=== PATIENT | female | born 1975 | race Caucasian/White ===

== ENCOUNTER 2016-12-08 13:26 | Emergency (ER) ==
[2016-12-08 13:31] VITALS: BP 117/84; TEMP 101.5; BMI 35.9
[2016-12-08] MEDS ORDERED: DECADRON 4 MG/ML SDV IM STA (13:50)
[2016-12-08] MEDS ORDERED: TORADOL IM STA (13:50)
--- NOTE | 2016-12-08 13:58 | ED.PDOC ---
General ED Provider: Dr. REID JAMES Chief Complaint: Respiratory Complaint Stated Complaint: Been coughing, congested, getting yellow sputum hurting in chest to breath, Time Seen by Physician: 13:56 Mode of Arrival: Walk-In Information Source: Patient Nursing and Triage Documentation Reviewed and Agree: Yes Respiratory Complaint Exam - Respiratory Complaint/Exam Symptoms Are: Still present Timing: Constant Initial Severity: Mild Current Severity: Mild Location: Nose, Throat Character: Reports: Productive cough Aggravating: Reports: Allergens, URI Alleviating: Reports: None Associated Signs and Symptoms: Reports: Pleuritic chest pain, URI, Nasal congestion. Denies: Rapid breathing, Dyspnea, Fever, Chills, Chest pain, Wheezing, Hemoptysis, Dizziness, Calf pain, Calf swelling, Edema, Hoarseness, Sinus discomfort, Vomiting, Sore throat, Weight loss, Decreased oral intake, Increased thirst, Increased appetite, Increased urination Related History: Reports: Similar episode History of Healthcare-Acquired Pneumonia: No Related Surgical History: Reports: None Pulmonary Embolism Risk Factors: None Cardiac Risk Factors: Reports: None Pseudomonas Risk Factors: Reports: None Tuberculosis Risk Factors: Reports: None Status Asthmaticus Risk Factors: Reports: None Recent Stress Test: No Recent Echo/LV Function: No Current Antibiotic Use: No Current Asthma Medication Use: No Respiratory Distress: None Inadequate Respiratory Effort: No Dysphagia Present: No JVD Present: No Retractions: Not Present Diminished Breath Sounds: No Prolonged Respiration: Inspiratory phase Sinus Tenderness: None Differential Diagnoses: Pneumonia, Bronchitis Review of Systems - Review Of Systems Constitutional: Reports: No symptoms Eyes: Reports: No symptoms Ears, Nose, Mouth, Throat: Reports: No symptoms Respiratory: Reports: Cough Cardiac: Reports: Chest pain GI: Reports: No symptoms : Reports: No symptoms Musculoskeletal: Reports: No symptoms Skin: Reports: No symptoms Neurological: Reports: No symptoms Endocrine: Reports: No symptoms Hematologic/Lymphatic: Reports: No symptoms All Other Systems: Reviewed and Negative Past Medical History - Past Medical History Previously Healthy: Yes Endocrine: Reports: None Cardiovascular: Reports: None Respiratory: Reports: COPD (on 2lit) Hematological: Reports: None Gastrointestinal: Reports: None Genitourinary: Reports: None Neuro/Psych: Reports: None Musculoskeletal: Reports: None Cancer: Reports: None Last Menstrual Period: N/A - Surgical History General Surgical History: Reports: None - Family History Family History: Reports: None - Social History Smoking Status: Current every day smoker Smoking Cessation Counseling Time: > 3 min - 10 min Hx Substance Use: No Alcohol Screening: None Physical Exam - Physical Exam Appearance: Well-appearing, No pain distress, Well-nourished Eyes: LUCERO, EOMI, Conjunctiva clear ENT: Ears normal, Nose normal, Oropharynx normal Respiratory: Airway patent, Breath sounds clear, Breath sounds equal, Respirations nonlabored Cardiovascular: RRR, Pulses normal, No rub, No murmur GI/: Soft, Nontender, No masses, Bowel sounds normal, No Organomegaly Musculoskeletal: Normal strength, ROM intact, No edema, No calf tenderness Skin: Warm, Dry, Normal color Neurological: Sensation intact, Motor intact, Reflexes intact, Cranial nerves intact, Alert, Oriented Psychiatric: Affect appropriate, Mood appropriate Interpretation - Radiology Interpretation Radiology Interpretation By: ED Physician Radiology Results: Negative Exam Interpreted: CXR Critical Care Note - Critical Care Note Total Time (mins): 0 Course - Course Hematology/Chemistry: 12/08/16 14:00 12/08/16 14:00 Orders, Labs, Meds: Lab Review 12/08/16 14:00 WBC 21.93 H RBC 5.18 Hgb 15.8 Hct 45.5 MCV 87.8 MCH 30.5 MCHC 34.7 RDW Coeff of [place] 13.1 Plt Count 296 Immature Gran % (Auto) 0.8 Neut % (Auto) 79.4 Lymph % (Auto) 10.8 Morrison % (Auto) 8.1 Eos % (Auto) 0.5 Baso % (Auto) 0.4 Immature Gran # (Auto) 0.2 Neut # 17.4 H Lymph # 2.4 Morrison # 1.8 Eos # 0.1 Baso # 0.1 Sodium 134 L Potassium 3.4 L Chloride 100 Carbon Dioxide 23 Anion Gap 14.4 BUN 7 Creatinine 0.69 Estimated GFR (MDRD) 93.00 BUN/Creatinine Ratio 10.14 Glucose 94 Lactic Acid 7.3 Calcium 9.0 Total Bilirubin 0.93 AST 15 ALT 13 Alkaline Phosphatase 61 Total Protein 8.0 Albumin 3.4 Globulin 4.6 Albumin/Globulin Ratio 0.74 Procalcitonin 0.06 Influenza A (Rapid) Negative Influenza B (Rapid) Negative Orders Category Date Time Status CBC W/ AUTO DIFF Stat LAB 12/08/16 14:00 Completed COMPREHENSIVE METABOLIC PANEL Stat LAB 12/08/16 14:00 Completed LACTIC ACID Stat LAB 12/08/16 14:00 Completed PROCALCITONIN Stat LAB 12/08/16 14:00 Completed RAPID FLU A/B Stat LAB 12/08/16 14:00 Completed Acetaminophen [Tylenol] MEDS 12/08/16 13:59 Discontinued 500 mg PO ONCE STA Dexamethasone 4 mg/ml Inj [Decadron 4 mg/ml Sdv] MEDS 12/08/16 13:50 Discontinued 4 mg IM ONCE STA Ketorolac Tromethamine [Toradol] MEDS 12/08/16 13:50 Discontinued 30 mg IM ONCE STA CHEST, 2 VIEWS PA & LAT Stat RADS 12/08/16 13:50 Completed Medications Discontinued Medications Generic Name Dose Route Start Last Admin Trade Name Manuelq PRN Reason Stop Dose Admin Acetaminophen 500 mg 12/08/16 13:59 12/08/16 14:28 Tylenol PO 12/08/16 14:00 500 mg ONCE STA Administration Dexamethasone Sodium Phosphate 4 mg 12/08/16 13:50 12/08/16 14:29 Decadron 4 Mg/Ml Sdv IM 12/08/16 13:51 4 mg ONCE STA Administration Ketorolac Tromethamine 30 mg 12/08/16 13:50 12/08/16 14:29 Toradol IM 12/08/16 13:51 30 mg ONCE STA Administration Vital Signs: Temp Pulse Resp BP Pulse Ox 12/08/16 13:28 101.5 F H 125 H 16 117/84 95 Departure - Departure Time of Disposition: 15:27 Disposition: HOME SELF-CARE Discharge Problem: Acute upper respiratory infection Instructions: Upper Respiratory Infection (ED) Condition: Stable Pt referred to PMD for follow-up: Yes Additional Instructions: INCREASE HYDRATION TYLENOL ADVISED TO STOP SMOKING, TAKE MEDICATIONS WITH FOOD Prescriptions: Amoxicillin/Potassium Clav [Augmentin 500-125 mg Tab] 1 tab PO Q12HR #20 tablet Guaifenesin/Codeine Phosphate [Robitussin AC Syrup] 10 ml PO Q6H #1 bottle Prednisone 10 mg PO BIDWM #14 tablet Allergies/Adverse Reactions: Allergies cephalexin [From Keflex] Adverse Reaction (Verified 12/08/16 13:32) erythromycin base Adverse Reaction (Verified 12/08/16 13:32) Home Medications: Ambulatory Orders Albuterol Sulfate [Proair Hfa] 2 puff IH Q6H PRN 12/08/16 Amoxicillin/Potassium Clav [Augmentin 500-125 mg Tab] 1 tab PO Q12HR #20 tablet 12/08/16 Budesonide/Formoterol Fumarate [Symbicort 160-4.5 Mcg Inhaler] 2 puff IH BID Guaifenesin/Codeine Phosphate [Robitussin AC Syrup] 10 ml PO Q6H #1 bottle 12/08 Hydrochlorothiazide 12.5 mg PO DAILY 12/08/16 Ipratropium/Albuterol Neb [Duoneb] 1 vial NEB RTQ6H 12/08/16 Lorazepam 0.5 mg PO TID PRN 12/08/16 Lovastatin 10 mg PO DAILY 12/08/16 Olanzapine 10 mg PO BEDTIME 12/08/16 Prednisone 10 mg PO BIDWM #14 tablet 12/08/16 Sertraline HCl 100 mg PO DAILY 12/08/16 Tiotropium [place] [Spiriva] 1 cap IH DAILY 12/08/16 Disposition Discussed With: Patient, Family
[2016-12-08] MEDS ORDERED: TYLENOL PO STA (13:59)
[2016-12-08 14:09] LABS: BASOPHILS # (AUTO) 0.1 K/uL (0-0.2); BASOPHILS % (AUTO) 0.4 % (0.0-3.0); EOSINOPHILS # (AUTO) 0.1 K/ul (0.0-0.7); EOSINOPHILS % (AUTO) 0.5 % (0.0-7.0); HEMATOCRIT 45.5 % (37.0-47.0); HEMOGLOBIN 15.8 g/dl (12.0-16.0); IMMATURE GRANULOCYTE % (AUTO) 0.8 % (0.0-5.0); LYMPHOCYTES # (AUTO) 2.4 K/uL (0.60-3.4); LYMPHOCYTES % (AUTO) 10.8 (10.0-50.0); MEAN CORPUSCULAR HEMOGLOBIN 30.5 pg (27.0-31.0); MEAN CORPUSCULAR HGB CONC 34.7 (31.8-35.4); MEAN CORPUSCULAR VOLUME 87.8 fl (81.0-99.0); MONOCYTES # (AUTO) 1.8 K/uL (0.4-2.0); MONOCYTES % (AUTO) 8.1 (0-10); NEUTROPHILS # (AUTO) 17.4 K/ul (2.0-6.9); NEUTROPHILS % (AUTO) 79.4; PLATELET COUNT 296 10^3/uL (140-440); RED BLOOD COUNT 5.18 10^6/ul (4.20-5.40); WHITE BLOOD COUNT 21.93 K/ul (4.6-10.2)
--- NOTE | 2016-12-08 14:16 | DI ---
EXAM: CHEST FRONTAL AND LATERAL VIEWS HISTORY: Cough. COMPARISON: 05/18/2016 FINDINGS / IMPRESSION: Low lung volumes and patient positioning limits image quality. Stable norm al heart size. It would be difficult to exclude subtle discoid pneumonia in the right base versus a telectasis. Lungs are otherwise clear. No vascular congestion or pleural fluid.
[2016-12-08 14:26] LABS: ALBUMIN 3.4 g/dL (3.4-5.0); ALBUMIN/GLOBULIN RATIO 0.74; ANION GAP 14.4; BILIRUBIN,TOTAL 0.93 mg/dL (0.00-1.20); BUN/CREATININE RATIO 10.14; CREATININE 0.69 mg/dL (0.60-1.30); POTASSIUM 3.4 mmol/L (3.5-5.10)
[2016-12-08 14:43] LABS: FLU INTERNAL QC INTERNAL QC VALID; RAPID FLU A NEGATIVE (NEGATIVE); RAPID FLU B NEGATIVE (NEGATIVE)
[2016-12-08] MEDS ORDERED: AUGMENTIN 875-125 MG TAB PO STA (15:26)
== END 2016-12-08 15:56 | disposition home or self-care (01) ==
LOC: ED 13:26
DX: J06.9 Acute upper respiratory infection, unspecified (principal); F17.210 Nicotine dependence, cigarettes, uncomplicated; Z79.899 Other long term (current) drug therapy
CPT/HCPCS: 36415; 80053; 83605; 84145; 85025; 87804; 96372; 99283

== ENCOUNTER 2017-01-02 13:01 | Outpatient (CLI) | END 2017-01-02 13:02 | disposition home or self-care (01) | LOC: CAR 13:01 | PROVIDERS: ATTEND Physician Assistant | DX: R40.0 Somnolence (principal) | CPT/HCPCS: 95810 ==

== ENCOUNTER 2017-01-16 16:47 | Outpatient (CLI) | END 2017-01-16 16:48 | disposition home or self-care (01) | LOC: CAR 16:47 | PROVIDERS: ATTEND Psychiatry & Neurology Neurology | DX: G47.33 Obstructive sleep apnea (adult) (pediatric) (principal) | CPT/HCPCS: 95811 ==